=== PATIENT | female | born 1980 | race Caucasian/White ===

== ENCOUNTER → 2018-01-25 | Outpatient (CLI) | payer OTHER ==
[~2018-01-25] VITALS: Ht 152.4 cm; Wt 63.5 kg
[~2018-01-25] MED LIST: AMOX1TAB12 PO; ATARAX25 MG PO; INTESTINEX680 MG PO; ZYRTEC10 MG PO
== END | disposition home or self-care (01) ==
LOC: PPHC 11:24
DX: B34.9 Viral infection, unspecified (principal); J09.X2 Influenza due to identified novel influenza A virus with other respiratory manifestations

== ENCOUNTER 2019-01-18 12:33 | Outpatient (CLI) | payer OTHER | END 2019-01-18 12:44 | disposition home or self-care (01) | LOC: MAMO-SONO 12:33 | DX: N60.29 Fibroadenosis of unspecified breast (principal); Z12.31 Encounter for screening mammogram for malignant neoplasm of breast ==

== ENCOUNTER → 2019-04-11 09:00 | Outpatient (CLI) | payer OTHER | END | disposition home or self-care (01) | LOC: LAB 09:00 | DX: E78.49 Other hyperlipidemia (principal); R42 Dizziness and giddiness; R10.2 Pelvic and perineal pain; Z00.00 Encounter for general adult medical examination without abnormal findings; F41.8 Other specified anxiety disorders ==

== ENCOUNTER 2019-06-04 10:05 | Outpatient (CLI) | payer OTHER | END 2019-06-04 15:00 | disposition home or self-care (01) | LOC: LAB 10:05 | DX: J11.1 Influenza due to unidentified influenza virus with other respiratory manifestations (principal); J11.81 Influenza due to unidentified influenza virus with encephalopathy ==

== ENCOUNTER 2019-10-31 09:41 | Outpatient (CLI) | payer OTHER | END 2019-10-31 09:46 | disposition home or self-care (01) | LOC: LAB 09:41 | DX: N91.1 Secondary amenorrhea (principal) ==

== ENCOUNTER 2020-04-24 10:37 | Outpatient (CLI) | payer OTHER | END 2020-04-24 10:57 | disposition home or self-care (01) | LOC: NUCLEAR 10:37 | PROVIDERS: ATTEND General Practice | DX: M79.604 Pain in right leg (principal); M79.605 Pain in left leg; R60.0 Localized edema ==

== ENCOUNTER 2020-08-14 10:00 | Outpatient (CLI) | payer OTHER | END 2020-08-14 15:45 | disposition home or self-care (01) | LOC: PPH VACUNA 10:00 | DX: Z23 Encounter for immunization (principal) ==

== ENCOUNTER 2020-08-27 15:20 | Outpatient (CLI) | payer OTHER | END 2020-08-27 16:00 | disposition home or self-care (01) | LOC: OFIC 805 15:20 | PROVIDERS: ATTEND Otolaryngology Otology & Neurotology | DX: J00 Acute nasopharyngitis [common cold] (principal); H69.81 Other specified disorders of Eustachian tube, right ear ==

== ENCOUNTER 2020-11-06 10:45 | Outpatient (CLI) | payer OTHER | END 2020-11-06 18:00 | disposition home or self-care (01) | LOC: PPH VACUNA 10:45 | DX: Z23 Encounter for immunization (principal) ==

== ENCOUNTER → 2021-02-13 12:58 | Outpatient (CLI) | payer OTHER | END | disposition home or self-care (01) | LOC: LAB 12:58 | PROVIDERS: ATTEND Emergency Medicine Pediatric Emergency Medicine | DX: Z03.818 Encounter for observation for suspected exposure to other biological agents ruled out (principal) ==

== ENCOUNTER 2021-04-02 09:52 | Emergency (ER) | payer OTHER ==
[~2021-04-02] VITALS: Ht 157.5 cm; Wt 65.8 kg
== END 2021-04-02 12:46 | disposition home or self-care (01) ==
LOC: ER 09:52
DX: S13.4XXA Sprain of ligaments of cervical spine, initial encounter (principal); V49.9XXA Car occupant (driver) (passenger) injured in unspecified traffic accident, initial encounter; Y93.89 Activity, other specified; Y92.488 Other paved roadways as the place of occurrence of the external cause; Y99.8 Other external cause status

== ENCOUNTER 2021-04-02 10:35 | Outpatient (CLI) | payer OTHER | END 2021-04-02 15:00 | disposition home or self-care (01) | LOC: LAB 10:35 | PROVIDERS: ATTEND General Practice | DX: E11.9 Type 2 diabetes mellitus without complications (principal); R10.2 Pelvic and perineal pain; Z00.00 Encounter for general adult medical examination without abnormal findings; E78.49 Other hyperlipidemia; E55.9 Vitamin D deficiency, unspecified; N39.0 Urinary tract infection, site not specified ==

== ENCOUNTER 2021-04-02 14:32 | Outpatient (CLI) | payer OTHER | END 2021-04-02 14:33 | disposition home or self-care (01) | LOC: NUCLEAR 14:32 | PROVIDERS: ATTEND General Practice | DX: I65.23 Occlusion and stenosis of bilateral carotid arteries (principal); R42 Dizziness and giddiness ==

== ENCOUNTER → 2021-05-29 16:07 | Outpatient (CLI) | payer OTHER | END | disposition home or self-care (01) | LOC: LAB 16:07 | PROVIDERS: ATTEND Internal Medicine Cardiovascular Disease | DX: E78.1 Pure hyperglyceridemia (principal) ==

== ENCOUNTER 2021-08-19 08:00 | Outpatient (CLI) | payer OTHER | END 2021-08-19 08:30 | disposition home or self-care (01) | LOC: PPH VACUNA 08:00 | PROVIDERS: ATTEND Emergency Medicine Pediatric Emergency Medicine | DX: Z23 Encounter for immunization (principal) ==

== ENCOUNTER 2021-09-02 07:56 | Outpatient (CLI) | payer OTHER | END 2021-09-02 08:43 | disposition home or self-care (01) | LOC: LAB 07:56 | PROVIDERS: ATTEND Internal Medicine Cardiovascular Disease | DX: E78.00 Pure hypercholesterolemia, unspecified (principal) ==

== ENCOUNTER 2021-09-09 09:52 | Outpatient (CLI) | payer OTHER | END 2021-09-09 10:00 | disposition home or self-care (01) | LOC: MAMO-SONO 09:52 | PROVIDERS: ATTEND Emergency Medicine | DX: N64.89 Other specified disorders of breast (principal); Z12.31 Encounter for screening mammogram for malignant neoplasm of breast ==

== ENCOUNTER 2021-10-01 09:29 | Outpatient (CLI) | payer OTHER | END 2021-10-01 15:17 | disposition home or self-care (01) | LOC: LAB 09:29 | PROVIDERS: ATTEND General Practice | DX: Z20.828 Contact with and (suspected) exposure to other viral communicable diseases (principal); J02.8 Acute pharyngitis due to other specified organisms ==

== ENCOUNTER 2021-11-22 10:53 | Outpatient (CLI) | payer OTHER | END 2021-11-22 10:56 | disposition home or self-care (01) | LOC: LAB 10:53 | PROVIDERS: ATTEND Emergency Medicine Pediatric Emergency Medicine | DX: Z03.818 Encounter for observation for suspected exposure to other biological agents ruled out (principal) ==

== ENCOUNTER 2021-12-24 08:07 | Emergency (ER) | payer OTHER ==
[~2021-12-24] VITALS: Ht 157.5 cm; Wt 62.6 kg
== END 2021-12-24 08:39 | disposition home or self-care (01) ==
LOC: ER 08:07
DX: S61.011A Laceration without foreign body of right thumb without damage to nail, initial encounter (principal); W54.0XXA Bitten by dog, initial encounter; Y93.9 Activity, unspecified; Y92.9 Unspecified place or not applicable; Y99.9 Unspecified external cause status

== ENCOUNTER → 2022-04-04 14:52 | Outpatient (CLI) | payer OTHER | END | disposition home or self-care (01) | LOC: LAB 07:39 | PROVIDERS: ATTEND Plastic Surgery | DX: D68.9 Coagulation defect, unspecified (principal); I10 Essential (primary) hypertension ==

== ENCOUNTER 2022-04-18 06:11 | Day surgery (SDC) | payer OTHER ==
[~2022-04-18] VITALS: Ht 157.5 cm; Wt 67.1 kg
== END 2022-04-18 16:25 | disposition home or self-care (01) ==
LOC: CIR.AMB 06:11
PROVIDERS: ATTEND Plastic Surgery
DX: M62.08 Separation of muscle (nontraumatic), other site (principal); N64.82 Hypoplasia of breast; Z20.822 Contact with and (suspected) exposure to COVID-19
CPT/HCPCS: 15830; 15847; 19325; L8600

== ENCOUNTER 2022-09-16 15:50 | Outpatient (CLI) | payer OTHER | END 2022-09-16 15:55 | disposition home or self-care (01) | LOC: PPH VACUNA 15:50 | PROVIDERS: ATTEND Emergency Medicine Pediatric Emergency Medicine | DX: Z23 Encounter for immunization (principal) ==

== ENCOUNTER 2023-06-04 10:20 | Outpatient (CLI) | payer OTHER | END 2023-06-04 10:22 | disposition home or self-care (01) | LOC: MAMO-SONO 10:20 | PROVIDERS: ATTEND Surgery | DX: Z12.31 Encounter for screening mammogram for malignant neoplasm of breast (principal); N60.29 Fibroadenosis of unspecified breast ==

== ENCOUNTER 2023-09-17 14:30 | Outpatient (CLI) | payer OTHER | END 2023-09-17 14:40 | disposition home or self-care (01) | LOC: PPH VACUNA 14:30 | PROVIDERS: ATTEND Emergency Medicine Pediatric Emergency Medicine | DX: Z23 Encounter for immunization (principal) | CPT/HCPCS: 90686; G0008 ==

== ENCOUNTER → 2023-12-09 08:57 | Outpatient (CLI) | payer OTHER ==
[2023-12-09 09:33] LABS: HEMATOCRIT 40.6 % (36.0-45.00); HEMOGLOBIN 13.6 g/dL (12.0-15.00); MEAN CELL VOLUME 88.7 fL (80.00-100.00); MEAN CORPUSCULAR HEMOGLOBIN 29.7 pg (27.00-32.0); MEAN CORPUSCULAR HGB CONC 33.5 g/dl (32.0-36.0); PLATELET COUNT 223 K/uL (150-450); RED BLOOD COUNT 4.58 M/uL (4.00-6.00); RED CELL DISTRIBUTION WIDTH 13.9 % (11.5-14.5)
[2023-12-09 10:42] LABS: ALBUMIN 4.1 gm/dL (3.4-5.0); BILIRUBIN TOTAL 1.58 mg/dL (0.3-1.2); BILIRUBIN,CONJUGATED 0.34 mg/dL (0.0-0.2); BILIRUBIN,UNCONJUGATED 1.24 mg/dL (0.0-0.6); CHOL HDL RATIO 2.6 (0-5.0); CREATININE SERUM 0.62 mg/dL (0.55-1.02); GFR 105.06; POTASSIUM 3.67 mEq/L (3.5-5.1); T4 TOTAL 8.86 UG/DL (4.8-13.9); TOTAL PROTEIN 7.1 gm/dL (6.4-8.2); TSH 0.825 uIU/mL (0.358-3.74)
[2023-12-09 12:34] LABS: PH,URINE 6.5 (5.0-8.0); URINE APPEARANCE Clear; URINE BILIRRUBIN Negative (NEGATIVE); URINE BLOOD Moderate; URINE COLOR Yellow; URINE GLUCOSE Negative (NEGATIVE); URINE LEUKOCYTE Trace; URINE NITRATE Negative; URINE PROTEIN Negative (NEGATIVE); URINE UROBILINOGEN 0.2 E.U./dl
[2023-12-09 12:42] LABS: URINE BACTERIA 279.6 uL (0.0-1933); URINE EPITHELIAL CELLS 3.5 uL (0.0-38.8); URINE WBC 3.5 uL (0.0-23.2)
== END | disposition home or self-care (01) ==
LOC: LAB 08:57
PROVIDERS: ATTEND General Practice
DX: Z00.00 Encounter for general adult medical examination without abnormal findings (principal); E78.5 Hyperlipidemia, unspecified; R10.2 Pelvic and perineal pain; R10.9 Unspecified abdominal pain; E55.9 Vitamin D deficiency, unspecified

== ENCOUNTER 2024-09-13 10:34 | Outpatient (CLI) | payer OTHER | END 2024-09-13 10:58 | disposition home or self-care (01) | LOC: MAMO-SONO 10:34 | PROVIDERS: ATTEND Surgery | DX: N60.11 Diffuse cystic mastopathy of right breast (principal); N60.12 Diffuse cystic mastopathy of left breast ==

== ENCOUNTER 2024-12-27 15:20 | Outpatient (CLI) | payer OTHER | END 2024-12-27 15:30 | disposition home or self-care (01) | LOC: PPH VACUNA 15:20 | PROVIDERS: ATTEND Emergency Medicine Pediatric Emergency Medicine | DX: Z23 Encounter for immunization (principal) ==

== ENCOUNTER → 2025-06-06 | Emergency (ER) | payer OTHER ==
[~2025-06-06] VITALS: Ht 157.5 cm; Wt 62.6 kg
[~2025-06-06] MED LIST changes: +CEFTRIAXONE SODIUM 1,000 MG VIAL IM ONE; +KETOROLAC TROMETHAMINE 60 MG VIAL IM ONE; +NORFLEX100MG PO
== END | disposition home or self-care (01) ==
LOC: ER 07:58
DX: S90.512A Abrasion, left ankle, initial encounter (principal); X50.1XXA Overexertion from prolonged static or awkward postures, initial encounter; Y93.89 Activity, other specified; Y92.89 Other specified places as the place of occurrence of the external cause; M25.579 Pain in unspecified ankle and joints of unspecified foot

== ENCOUNTER 2025-07-13 11:51 | Outpatient (CLI) | payer OTHER ==
[~2025-07-13 11:51] MED LIST changes: -CEFTRIAXONE SODIUM 1,000 MG VIAL IM ONE; -KETOROLAC TROMETHAMINE 60 MG VIAL IM ONE
[2025-07-13 12:35] LABS: COVID-19 AG NEGATIVE (NEGATIVE)
== END 2025-07-14 07:26 | disposition home or self-care (01) ==
LOC: LAB 11:51
DX: J11.1 Influenza due to unidentified influenza virus with other respiratory manifestations (principal); Z20.828 Contact with and (suspected) exposure to other viral communicable diseases

== ENCOUNTER 2025-09-19 08:10 | Outpatient (CLI) | payer OTHER | END 2025-09-19 08:17 | disposition home or self-care (01) | LOC: MAMO-SONO 08:10 | PROVIDERS: ATTEND Surgery | DX: N60.11 Diffuse cystic mastopathy of right breast (principal); N60.12 Diffuse cystic mastopathy of left breast ==